=== PATIENT | male | born 1950 | race Caucasian/White ===

== ENCOUNTER 2021-01-13 09:48 | Day surgery (SDC) | payer MEDICARE ==
[2021-01-10 14:28] VITALS: BMI 33.2
[2021-01-13] MEDS ORDERED: Fentanyl 100 MCG/2 ML VIAL ONE ×2 (11:20→14:13)
[2021-01-13] MEDS ORDERED: Promethazine HCl 25 MG/ML VIAL ONE (11:21)
[2021-01-13] MEDS ORDERED: ePHEDrine 50 MG/ML VIAL ONE (12:00)
[2021-01-13] MEDS ORDERED: PHENYLEPHRINE-NS 100 MCG/ML 10 ML SYRINGE ONE (12:00)
[2021-01-13] MEDS ORDERED: PROPOFOL 200 MG/20 ML VIAL ONE (12:00)
[2021-01-13] MEDS ORDERED: Glycopyrrolate 0.2 MG/ML 5 ML SYRINGE ONE (12:00)
[2021-01-13] MEDS ORDERED: Lidocaine 1% PF 5 ML VIAL ONE (12:00)
== END 2021-01-13 15:45 | disposition home or self-care (01) ==
LOC: SDC/OP 09:48 → EDSTATUS 11:00 → SDC/OP 15:45
PROVIDERS: ATTEND Surgery
DX: M54.16 Radiculopathy, lumbar region (principal); M54.14 Radiculopathy, thoracic region; M43.17 Spondylolisthesis, lumbosacral region; M48.04 Spinal stenosis, thoracic region; M48.05 Spinal stenosis, thoracolumbar region; M48.061 Spinal stenosis, lumbar region without neurogenic claudication; M48.07 Spinal stenosis, lumbosacral region; I70.0 Atherosclerosis of aorta; T84.216A Breakdown (mechanical) of internal fixation device of vertebrae, initial encounter; Z79.02 Long term (current) use of antithrombotics/antiplatelets; Z79.82 Long term (current) use of aspirin; Z79.84 Long term (current) use of oral hypoglycemic drugs; Z79.899 Other long term (current) drug therapy; Z88.8 Allergy status to other drugs, medicaments and biological substances; Z98.1 Arthrodesis status
CPT/HCPCS: 72070; 72110; 72128; 72131; 72146; 72148; J2550; J2704; J3010; J3490

== ENCOUNTER 2021-09-15 13:33 | Outpatient (CLI) | payer MEDICARE | END 2021-09-15 13:34 | disposition home or self-care (01) | LOC: TBSIIMAG 13:33 | PROVIDERS: ATTEND Physician Assistant | DX: M54.14 Radiculopathy, thoracic region (principal); S22.089D Unspecified fracture of T11-T12 vertebra, subsequent encounter for fracture with routine healing; Z98.1 Arthrodesis status | CPT/HCPCS: 72072; 72100 ==

== ENCOUNTER 2021-11-13 16:40 | Outpatient (CLI) | payer MEDICARE | END 2021-11-13 16:41 | disposition home or self-care (01) | LOC: LABBT 16:40 | PROVIDERS: ATTEND Thoracic Surgery (Cardiothoracic Vascular Surgery) | DX: Z20.822 Contact with and (suspected) exposure to COVID-19 (principal) | CPT/HCPCS: 87811 ==

== ENCOUNTER 2021-11-17 06:03 | Day surgery (SDC) | payer MEDICARE ==
[2021-11-13 11:54] VITALS: BMI 32.2
[2021-11-17] MEDS ORDERED: Lidocaine 1% (PF) 30 ML VIAL ONE (06:35)
[2021-11-17] MEDS ORDERED: Iopamidol 370 76% 50 ML VIAL FS ONE (09:09)
== END 2021-11-17 12:02 | disposition home or self-care (01) ==
LOC: SDC 06:03
PROVIDERS: ATTEND Thoracic Surgery (Cardiothoracic Vascular Surgery)
PROC: 06PY3DZ Removal of Intraluminal Device from Lower Vein, Percutaneous Approach (ICD-10-PCS; principal; 2021-11-17)
DX: Z45.89 Encounter for adjustment and management of other implanted devices (principal); I25.10 Atherosclerotic heart disease of native coronary artery without angina pectoris; I10 Essential (primary) hypertension; E78.5 Hyperlipidemia, unspecified; E03.9 Hypothyroidism, unspecified; K21.9 Gastro-esophageal reflux disease without esophagitis; E11.42 Type 2 diabetes mellitus with diabetic polyneuropathy; Z86.718 Personal history of other venous thrombosis and embolism; Z79.01 Long term (current) use of anticoagulants; Z79.82 Long term (current) use of aspirin; Z79.84 Long term (current) use of oral hypoglycemic drugs; Z79.890 Hormone replacement therapy; Z79.899 Other long term (current) drug therapy; Z88.8 Allergy status to other drugs, medicaments and biological substances; Z95.5 Presence of coronary angioplasty implant and graft; Z98.1 Arthrodesis status
CPT/HCPCS: 37193; J2001; Q9967